=== PATIENT | male | born 1970 | race Caucasian/White ===

== ENCOUNTER 2016-12-20 09:48 | Day surgery (SDC) | payer OTHER ==
--- NOTE | 2016-12-18 13:31 | PCM.ANEPRE ---
Anesthesia Pre-Op Review Reason for Review: Cardiac issues Anesthesia Recommendations: Proceed with Procedure Additional Comments 46 yo male for hydrocelectomy. 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 Patient last saw election supervisor 05/2016 for clearance prior to TKA at [facility]. Noted to be well compensated at echo showed normal EF with no significant change since previous study. Anesthetic records are being procured. Otherwise I see no further w/u indicated. Proceed with DOS eval. Chart Reviewed by: Jax Donahue MD Dec 18, 2016 13:31
[2016-12-20] VITALS (8 sets, daily range): BP systolic 110–145; BP diastolic 68–89; PULSE 53–68; RESP 11–19; O2SAT 94–98
[~2016-12-20] VITALS: Ht 172.7 cm; Wt 118.7 kg
[~2016-12-20 09:48] MED LIST: ACET-2605 PO; BUSP5TAB3 PO; CELE-67 PO; CHOL10008 PO; FLUV100T3 PO; GABA-502 PO; KEP500TA PO; LISI-571 PO; METO25TA6 PO; MULT-1018 PO; OXYC-407 PO; RANI150T11 PO; TOLT2TAB5 PO
[2016-12-20] MEDS ORDERED: Glycopyrrolate 0.2 MG/ML 1mL Inj ONE (09:49)
[2016-12-20] MEDS ORDERED: fentaNYL-PF 50 mCg/mL 2 mL Inj ONE (09:49)
[2016-12-20] MEDS ORDERED: Dexamethasone 4 mg/mL Inj ONE (09:49)
[2016-12-20] MEDS ORDERED: Neostigmine 1 mg/mL 10 mL Inj ONE (09:49)
[2016-12-20] MEDS ORDERED: Rocuronium 10 mg/mL 5 mL Inj ONE (09:49)
[2016-12-20] MEDS ORDERED: Ondansetron 2 mg/mL 2 mL Inj ONE (09:49)
[2016-12-20] MEDS ORDERED: Propofol 10,000 mCg/mL 20 mL Inj ONE (09:49)
[2016-12-20] MEDS: Lactated Ringer's 1,000 ML IV SCH ×2 (10:05→11:11)
[2016-12-20] MEDS ORDERED: ACET-171 PO (10:22)
[2016-12-20] MEDS ORDERED: DSS PO (10:22)
[2016-12-20] MEDS ORDERED: CeFAZolin 2 Gm/50 mL D5W Duplex Bag IV ONE (10:53)
[2016-12-20] MEDS ORDERED: CeFAZolin 1,000 mg Inj IM ONE (11:14)
[2016-12-20] MEDS ORDERED: Bupivacaine-MPF 0.5% 30 mL Inj INFILTRATE ONE (11:42)
[2016-12-20] MEDS ORDERED: CeFAZolin 2 Gm/50 mL D5W IV Premix IV ONE (11:45)
--- NOTE | 2016-12-20 11:48 | PCM.HPANE ---
Patient Data Surgeon Admitting Provider: Attending Provider:Elisabeth Gibbons MD Primary Care Physician:Олег Kelly MD Other Provider:TysonocNeetuHellier Anesthesia Reason for Visit Right Hydrocele Ht/WT & BMI Height (Feet): 5 Height (Inches): 9 Weight (Kilograms): 119.3 Body Mass Index 38.00 Allergies Coded Allergies: ceftriaxone sodium (Verified Allergy, Severe, Rash, 12/18/16) ertapenem (Verified Allergy, Intermediate, Rash, 12/18/16) Past Anesthesia History Anesthesia History: Denies:: Anesthesia Reactions, Fam Anesthesia Reaction, Fam Malignant Hypertherm, Malignant Hyperthermia Diabetes History Hx Diabetes?: No 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) Medications Home Meds Incl Beta Rachel: No Reported Medications Acetaminophen 500 Mg Uxfnve146-5,000 Mg PO Q6H PRN For Fever 12/20/16 [Dss] No Conflict Yrrcm472 Mg PO PRN 12/20/16 Metoprolol Tartrate 25 Mg Ufwttg78 Mg PO BID 30 Days Ref 0 12/18/16 Cholecalciferol (Vitamin D3) (Vitamin D3)1,000 Unit Tab.chew1,000 Unit PO DAILY 12/18/16 Multivitamin (Multi Vitamin Daily)1 Each Tablet1 Each PO DAILY 30 Days Ref 0 12/18/16 Celecoxib 200 Mg Fjtottm971 Mg PO BID 12/18/16 Gabapentin 300 Mg Zawoqeo375 Mg PO BID Ref 0 12/18/16 Ranitidine (Zantac)150 Mg Tehkpl901 Mg PO BID 12/18/16 Tolterodine Tartrate 2 Mg Tablet2 Mg PO BID 12/18/16 Oxycodone HCl/Acetaminophen 5-325 (Endocet 5-325)1 Each Tablet1-2 Tablet PO Q4H PRN For Pain 12/18/16 Lisinopril 5 Mg Tablet5 Mg PO BID #60 TABLET Ref 0 12/18/16 Levetiracetam (Keppra)500 Mg Uwmplf433 Mg PO BID 12/18/16 Fluvoxamine Maleate 100 Mg Szlurm337 Mg PO HS Ref 0 12/18/16 Buspirone 5 Mg Tablet5 Mg PO BID Ref 0 12/18/16 Discontinued Reported Medications Acetaminophen/Diphenhydramine (Tylenol Pm Ex-Strength Caplet)500 Mg-25 Mg Tablet1 Each PO 12/18/16 Tamsulosin-Expunged Drug, Do Not Renew! 0.4 Mg Cap.sr.24h0.4 Mg PO HS 07/10/11 Warfarin Inactive Drug Do Not Use (Coumadin Inactive Drug Do Not Use)1 Mg Tablet1 Mg PO e, , sun DAILY 07/10/11 Warfarin Inactive Drug Do Not Use (Coumadin Inactive Drug Do Not Use)2 Mg Tablet2 Mg PO mon,wed,sun,sat 07/10/11 Ranitidine 150 MG Tablet (Zantac 150 MG Tablet)150 Mg Lzh697 Mg PO BID 07/10/11 Enalapril-Expunged Drug, Do Not Renew! 2.5 Mg Tablet2.5 Mg PO BID 07/10/11 Metoprolol Suc-Expunged Drug, Do Not Renew! 25 Mg Tber25 Mg PO DAILY 07/10/11 Potassium Chl-Expunged Drug, Do Not Renew! (E-Pxn-Tvrimpkk Drug, Do Not Renew!) 20 Meq Tab.prt.sr20 Meq PO DAILY 07/10/11 Furosemide-Expunged Drug, Do Not Renew! (Lasix-Expunged Drug, Do Not Renew!)40 Mg Emzrdi77 Mg PO DAILY 07/10/11 Indomethacin-Expunged Drug, Do Not Renew! (Indocin-Expunged Drug, Do Not Renew!) 50 Mg Jhmtnng65 Mg PO BID PRN 07/10/11 [Prednisone] No Conflict Check 05/13/11 [Azithromycin] No Conflict Check 05/13/11 Albuterol-Expunged Drug, Do Not Renew! 8.5 Gm Hfa.aer.ad2 Puffs IH Q 4 hours prn SOB 05/13/11 History History of ENT Problems?: No HEENT History: Denies:: Cataracts Glaucoma Hearing Problem Denture Type: None Teeth Condition: Within Normal Limits Hx of Heart Problems?: Yes Cardiovascular History: Positive for:: Cardiac Surgery (Aortic valve replacement) Denies:: Abdominal Aortic Aneurism Atrial Fibrillation Hx of Respiratory Problem?: Yes Respiratory History: Positive for:: Chest Surgery Dyspnea (with exertion can walk approx 1 block w/o stopping) Denies:: Asthma COPD Cough Emphysema Pneumonia Pulmonary Embolism Tuberculosis Use of C-PAP Machine Hx Neurologic Problems?: No Neurological History: Positive for:: CVA (2009) Seizures (hx of) Denies:: Alzheimer's Disease Dementia Dizziness Headaches Multiple Sclerosis Parkinson's Disease TIA Other Neurological Pertinent: asphasia from CVA Hx of GI Problems?: No Hx of Problems?: No Male Hx: Positive for:: Scrotal Mass (reason for admission) Denies:: Prostate Problems Testicular Surgery Skin History: Denies:: History Skin Disorders? Pressure Ulcers Hx Musculoskeletal Problems?: Yes Musculoskeletal History: Positive for:: Degenerative Joint Joint Replacement (Right hip) Osteoarthritis Denies:: Back Injury Musculoskeletal Trauma Myasthenia Gravis Rheumatoid Arthritis Systemic Lupus Hx of Psycho/Social Problems?: No Hx Surgeries?: Yes (Rt hip) Hx Any Other Health Problems?: No Other History: Positive for:: Hospitalization (July 2016 hip replacement [facility]) Denies:: Cancer Endocrine Disease Thyroid Disease History Blood Transfusions: Denies:: Blood Transfuse Reaction Blood Transfusions Hx Diabetes: No Hx Alcohol Use: Yes (1-2 times weekly)Hx Substance Use: Yes (marijuana )Have You Smoked inLast 12 mo: No Stop/Bang S-Snoring: Do You Snore Loudly: No T-Tired: feel tired, fatigued: No O-Obsered: Observed not breath: No P-Blood Pressure: treated: No B- Body Mass Index > 35 kg/m2: Yes A- Age over 50: No N- Neck Large Circumference: Yes G- Gender Male: Yes DAYAN Total Score: 3 DAYAN Risk Assessment: Low Risk, <3 Yes Risk Assessment Category Category 1A: Patient has history of documented sleep apnea, and HAS NOT received any narcotic, sedative or anesthesia administration during this stay. Category 1B: Patient has history of documented sleep apnea, and HAS received any narcotic , sedative or anesthesia administration during this stay Category 2: Patient has SUSPECTED Obstructive Sleep Apnea, and HAS received any narcotic , sedative or anesthesia administration during this stay. Category 3: Patient has SUSPECTED Obstructive Sleep Apnea and HAS NOT received narcotic, sedative or anesthesia administration during this stay. Category 4: Outpatient in Procedural Areas with known sleep apnea or who screen positive for High Risk via the STOP/BANG questionnaire. Exam Exam General Appearance: Alert HEENT/AIRWAY: MP 2, Neck Movement (from, 3 fb) Lungs: Clear to Auscultation Heart: Regular Rate/Rhythm Plan Impression Patient chart reviewed, patient interviewed and anesthestic plan with risks, benefits, and alternatives discussed, and informed consent obtained. NPO per Anesth. Guidelines: Yes ASA Physical Status: ASA3 Severe Disease Anesthetic Plan: GA Bene/Risks/Altern/Consents: Yes HP Complete Prior to Induction: Yes Other Discussed GA with patient and his caregiver. All questions were answered and they agree to proceed. Keshav Archer MD Dec 20, 2016 09:51
[2016-12-20] MEDS ORDERED: Lactated Ringer's 1,000 ML IV SCH (11:49)
[2016-12-20] MEDS ORDERED: Lactated Ringer's 500 ML IV PRN (11:49)
[2016-12-20] MEDS ORDERED: fentaNYL-PF 50 mCg/mL 2 mL Inj IVPUSH ONE (11:50)
[2016-12-20] MEDS ORDERED: Dexamethasone 4 mg/mL Inj IVPUSH PRN (11:50)
[2016-12-20] MEDS ORDERED: Phenylephrine 10,000 mCg/mL Inj IVPUSH PRN (11:50)
[2016-12-20] MEDS ORDERED: EPHEDrine Sulfate 50 mg/mL Inj IVPUSH PRN (11:50)
[2016-12-20] MEDS ORDERED: Ondansetron 2 mg/mL 2 mL Inj IVPUSH PRN (11:50)
[2016-12-20] MEDS ORDERED: HYDROmorphone 1 mg/mL Inj IVPUSH PRN (11:50)
[2016-12-20] MEDS ORDERED: fentaNYL-PF 50 mCg/mL 2 mL Inj IVPUSH PRN (11:50)
[2016-12-20] MEDS ORDERED: MetoCLOpramide 5 mg/mL 2 mL Inj IVPUSH PRN (11:50)
[2016-12-20] MEDS ORDERED: Ondansetron 8 mg ODT Tablet PO PRN (13:00)
--- NOTE | 2016-12-20 13:50 | PCM.ANEP1 ---
Post Anesthesia PACU Phase 1 Assessment Vital Signs Vital Signs Date Time Temp Pulse Resp B/P Pulse Ox O2 Delivery O2 Flow Rate FiO2 12/20/16 13:29 36.6 56 14 117/70 95 Room Air 12/20/16 13:21 53 11 116/71 94 Room Air 12/20/16 13:15 62 19 116/75 95 Room Air 12/20/16 13:13 57 16 115/74 95 Room Air 12/20/16 13:05 60 17 111/74 94 Room Air 12/20/16 13:00 36.4 65 15 121/68 98 Simple Mask 7 12/20/16 10:24 36.2 68 16 145/89 94 Room Air Anesthetic Administered: GA Level of Alertness: Awake, talking GUERRERO's with Equal Strength: No Pain: No Nausea or Vomiting: No CV Function & Hydration Stable: Yes Airway Device: Oxygen Delivery: Simple Mask Lungs: Clear to Auscultation PACU Phase 2 Assessment Complications: No Follow up Care: N/A Patient Instructions Provided: N/A Keshav Archer MD Dec 20, 2016 13:50
[2016-12-20] MEDS: HYDROcodone-APAP 5-325 mg Tablet PO PRN ×2 (14:33→15:26)
--- NOTE | 2016-12-21 19:04 | OP ---
[address] [address] OPERATIVE REPORT PATIENT: SABINA MENESES : 1970 MR#: [id number] ADMIT: 12/20/2016 JOB ID: [id number] DATE OF SURGERY: 12/20/2016 PROCEDURE NAME: Right hydrocelectomy, in and out bladder catheterization. SURGEON: Elisabeth Gibbons MD ANESTHESIA: General. PREOPERATIVE DIAGNOSIS(ES): Large right-sided hydrocele, bothersome. POSTOPERATIVE DIAGNOSIS(ES): Large right-sided hydrocele, bothersome. INDICATIONS: The patient is a 46-year-old gentleman with an unfortunate history of a CVA with expressive aphasia, hemiparetic and bed-bound, bothered by a large right-sided tense hydrocele, electing treatment of this. He was counseled about risks and benefits of the procedure in detail and wished to proceed. The patient actually presented to the hospital having not stopped his Celebrex. We had a long conversation about the slight increased risk of bleeding complications, and my opinion that we place a drain because of this, and he wished strongly to proceed with surgery. He seemed well informed, so we agreed to go and proceed. PROCEDURE IN DETAIL: After appropriate informed consent was obtained, the patient was brought to the operating room and received IV antibiotics prior to the onset of the procedure. SCDs were placed. Adequate general anesthesia induced. He was carefully placed in the supine position. All pressure points were carefully padded. Cleaned, prepped, and draped in the usual sterile fashion. Midline incision was made along the raphe and we dissected down layer by layer to expose the right-sided hydrocele, which was large and thin walled. There was approximately 360 mL of straw-colored fluid. It was simple. The hydrocele sac itself was excised. We cauterized heavily the edges of the hydrocele sac and then oversewed with 3-0 chromic with locking sutures. Careful attention was given to other areas of minor oozing as the area was fairly vascular. Hemostasis was quite excellent at the termination of the procedure. We went ahead and used a hemostatic product on the cord given his history of Celebrex use and the minimal generalized ooze. The wound itself was irrigated out copiously with sterile saline. The testis was placed in anatomical proper orientation, into the scrotal sac. The dartos was closed with a running 2-0 Vicryl suture and then a skin suture of a running 2-0 chromic. Marcaine plain was used along the incision line along the cord to give him some postop comfort. A supportive dressing was applied. We did in out catheterization of the patient's bladder as he did not use the bathroom before the surgery started. This was done for his postop comfort in the PACU and the one-day surgery area. We got out approximately 200 mL of clear urine. Scrotal support was placed. He was awakened taken in stable condition to the postanesthesia care unit. [place]
== END 2016-12-20 23:59 | disposition home or self-care (01) ==
LOC: SAS 09:48
PROVIDERS: ATTEND Urology
DX: N43.2 Other hydrocele (principal); I69.320 Aphasia following cerebral infarction; Z95.2 Presence of prosthetic heart valve; Z79.1 Long term (current) use of non-steroidal anti-inflammatories (NSAID)
CPT/HCPCS: 55040; J0690; J1100; J2405; J2710; J3010; J7120